=== PATIENT | female | born 1985 | race African-American/Black ===

== ENCOUNTER 2016-06-21 23:18 | Emergency (ER) | payer SELFPAY | END 2016-06-22 01:41 | disposition home or self-care (01) | LOC: ER 23:18 | DX: S63.501A Unspecified sprain of right wrist, initial encounter (principal); G43.909 Migraine, unspecified, not intractable, without status migrainosus; D64.9 Anemia, unspecified; F17.210 Nicotine dependence, cigarettes, uncomplicated; X50.1XXA Overexertion from prolonged static or awkward postures, initial encounter ==